=== PATIENT | female | born 1940 | race Caucasian/White ===

== ENCOUNTER 2023-12-13 09:40 | Outpatient (OUT) | payer MEDICARE, OTHER, SELFPAY ==
--- NOTE | 2023-12-13 09:46 | CA_ITS ---
Patient Name: DEE ROSEN MR#: [id number] : 1940 Exam Date: 12/13/2023 Ordering Doctor: DR CELINA BONNER M.D. ECHOCARDIOGRAM REPORT PROCEDURE: CA ECHO DOPPLER COMPLETE INDICATIONS: Dyspnea COMPARISON: None. DESCRIPTION: COMPLETE ECHOCARDIOGRAM Real-time transthoracic echocardiography with 2D, M-mode, spectral and color flow Doppler performed. QUALITY: Technical quality was adequate. LEFT VENTRICLE: Normal chamber size. Borderline left ventricular hypertrophy. Global left ventricular systolic function is normal. Visualized left ventricular ejection fraction is 65-70% LV EF: 65-70% DIASTOLIC: Normal ATRIAL SEPTUM: Appears intact LEFT ATRIUM: Normal chamber size. RIGHT ATRIUM: Normal chamber size. RIGHT VENTRICLE: Normal chamber size. Normal right ventricular systolic function. TRICUSPID VALVE: Normal mobility and thickness. No stenosis with mild regurgitation. Severe pulmonary hypertension. RVSP 79mmHg MITRAL VALVE: Normal mobility and thickness. No evidence of mitral valve stenosis. Mild mitral annular calcification. Trivial mitral regurgitation. AORTIC VALVE: Normal trileaflet appearance. Thickened aortic valve. Normal leaflet mobility. No evidence of aortic valve stenosis. No aortic regurgitation. AORTIC ROOT: Normal diameter and appearance. PULMONIC VALVE: Normal thickness and mobility. No stenosis. Trivial regurgitation. PERICARDIUM: No evidence of pericardial effusion. IVC: Partial collapse with inspiration. Normal size. PLEURA: CONCLUSION: LEFT VENTRICLE: Normal chamber size. Borderline left ventricular hypertrophy. Global left ventricular systolic function is normal. Visualized left ventricular ejection fraction is 65-70%. Normal diastolic function Severe pulmonary hypertension. RVSP 79mmHg Mild tricuspid and trivial mitral regurgitation Adult Echocardiography Procedure Report Left Ventricle LVEDD (3.7 - 5.6 cm): 4.14 cm LVESD (2.2 - 4.0 cm): 2.56 cm LVIVS thickness (0.6 - 1.2 cm): 1.09 cm LVPW thickness (0.5 - 1.0 cm): 0.83 cm e': 0.11 m/s E - e': 10.04 LVOT Max Gradient: 7.50 mm[Hg] LVOT Area (cm2): 1.37 m/s Peak Velocity (LVOT): 1.37 m/s Mean Velocity (LVOT): 0.78 m/s LVOT Diameter 2.12 cm Left Ventricular Ejection Fraction: 61.64 % Left Atrium LA Volume Index (2D A2C): 31.38 ml/m2 Left Atrium Systolic Dimension: 3.23 cm Mitral Valve MV E to A Ratio: 1.29 MV Max Gradient: MV Mean Gradient: Mitral Valve A-Wave Peak Velocity: 0.83 m/s Mitral Valve E-Wave Peak Velocity: 1.07 m/s Cardiovascular Orifice Area: Right Ventricle RV Internal Diastolic Dimension: 3.54 cm Aorta AO Root Diam: 2.78 cm Ascending Ao Diam: 2.85 cm Aortic Valve AoV Area (Peak Arnold): 2.34 cm2, 2.34 cm2 AoV Area (VTI): 2.12 cm2, 2.12 cm2 Deceleration [place]: Pressure Half-Time: Peak Velocity(Antegrade Flow): 2.07 m/s Peak Gradient(Antegrade Flow): 17.09 mm[Hg] Mean Velocity(Antegrade Flow): 1.33 m/s Mean Gradient(Antegrade Flow): 8.24 mm[Hg] Velocity Time Integral: 46.47 cm Tricuspid Valve Peak Velocity (Regurgitant Flow): 3.98 m/s, 4.21 m/s, 3.93 m/s Peak Velocity: Pulmonic Valve Mean Gradient: 3.16 mm[Hg], 3.05 mm[Hg] Mean Velocity: 0.84 m/s, 0.83 m/s Peak Velocity: 1.21 m/s Peak Gradient: 6.20 mm[Hg], 5.58 mm[Hg] Right Atrium Right Atrium Systolic Pressure: 47.31 ml, 42.34 ml, 52.28 ml Dictated by: Rosa Odell MD on 12/13/2023 at 17:20 Approved by: Rosa Odell MD on 12/13/2023 at 17:27
[2023-12-13 11:03] LABS: Basophils Percent Auto 0.3 % (0.2-2.0); Eosinophils Absolute Auto 0.2 10^3/uL (0.0-0.7); Eosinophils Percent Auto 2.3 % (0.9-7.0); Hemoglobin 14.4 g/dL (12.0-16.0); Immature Granulocytes Abs Auto 0.01 10^3/uL (0.00-0.03); Immature Granulocytes Pct Auto 0.1 % (0.0-0.5); Lymphocytes Absolute Auto 1.3 10^3/uL (1.2-3.8); Lymphocytes Percent Auto 16.8 % (20.5-60.0); Mean Corpuscular Hemoglobin 29.3 pg (26.7-34.0); Mean Corpuscular Volume 91.5 fL (81.0-99.0); Mean Platelet Volume 9.7 fL (9.5-13.5); Monocytes Absolute Auto 0.4 10^3/uL (0.3-0.8); Monocytes Percent Auto 5.1 % (1.7-12.0); Neutrophils Percent Auto 75.4 % (43.0-75.0); Platelet Count 291 10^3/uL (150-450); Red Blood Count 4.92 10^6/uL (4.20-5.40); Red Cell Distribution Width 13.2 % (11.0-15.0)
[2023-12-13 12:21] LABS: Alanine Aminotransferase 29 U/L (14-59); Albumin Globulin Ratio 0.8; Albumin Level 3.3 g/dL (3.4-5.0); Alkaline Phosphatase 100 U/L (46-116); Anion Gap 7.8; Aspartate Amino Transferase 19 U/L (15-37); BUN Creatinine Ratio 35.4; Bilirubin Total 0.5 mg/dL (0.2-1.0); Calcium 8.7 mg/dL (8.5-10.1); Carbon Dioxide 35.1 mmol/L (21.0-32.0); Chloride 98 mmol/L (98-107); Estimated GFR (African America >60 (>=60); Estimated GFR (Non-African Ame >60 (>=60); Globulin 4.2 g/dL; Glucose 104 mg/dL (74-106); Potassium 3.9 mmol/L (3.5-5.1); Sodium 137 mmol/L (136-145); Total Protein 7.5 g/dL (6.4-8.2)
== END 2023-12-13 09:41 | disposition home or self-care (01) ==
LOC: CARD 09:40
PROVIDERS: PCP Family Medicine; Visit Provider Internal Medicine Interventional Cardiology
DX: R60.0 Localized edema (principal); R06.02 Shortness of breath
CPT/HCPCS: 36415; 80053; 85025; 93306